=== PATIENT | female | born 1955 | race Caucasian/White ===

== ENCOUNTER → 2016-11-12 | Outpatient (REF) | LOC: ZLAB.WCH 09:42 | DX: Z01.89 Encounter for other specified special examinations (principal) ==

== ENCOUNTER → 2016-11-26 | Outpatient (REF) ==
[2016-11-26 19:01] LABS: THYROID STIMULATING HORMONE 1.84 uIU/mL (0.465-4.680)
== END ==
LOC: ZLAB.WCH 18:12
PROVIDERS: Family Medicine
DX: Z01.89 Encounter for other specified special examinations (principal)